=== PATIENT | female | born 1960 | race Caucasian/White ===

== ENCOUNTER → 2016-04-30 | Outpatient (CLI) | payer BC ==
--- NOTE | 2016-05-06 07:57 | REPMRS ---
Patient History The patient states she had a clinical breast exam in 05/07 Family history of breast cancer in maternal aunt at age 54. Digital Woman Screen Mammo: April 30, 2016 - Exam #: [id number] Bilateral CC and MLO view(s) were taken. Technologist: Rocio Erickson, Technologist Prior study comparison: February 04, 2014, digital bilateral screening mammo, performed at [facility]. November 05, 2012, digital bilateral screening mammo, performed at [facility]. FINDINGS: There are scattered fibroglandular densities. There is a moderate amount of residual fibroglandular tissue which is fairly symmetric. There is no interval development of dominant mass, architectural distortion, or clustered microcalcification typical of malignancy. There has been no change in the appearance of the mammogram from the prior studies. ASSESSMENT: BI-RADS/ACR category 1 mammogram. Negative. Recommendation Routine screening mammogram of both breasts in 1 year (for women over age 40). This mammogram was interpreted with the aid of an FDA-approved computer-aided dectection system. Electronically Signed By: Gerry Arias MD 05/06/16 [id number]
== END ==
LOC: M WHC 10:15
PROVIDERS: ATTEND Nurse Practitioner Family
DX: Z12.31 Encounter for screening mammogram for malignant neoplasm of breast (principal)

== ENCOUNTER → 2016-04-30 | Outpatient (REF) | payer BC | LOC: M SFHCWAGY 11:03 | PROVIDERS: ATTEND Nurse Practitioner Family | DX: Z12.4 Encounter for screening for malignant neoplasm of cervix (principal) ==

== ENCOUNTER → 2017-11-27 | Outpatient (CLI) | payer BC | LOC: M WHC 11:12 | DX: Z12.31 Encounter for screening mammogram for malignant neoplasm of breast (principal) | CPT/HCPCS: 77067 ==

== ENCOUNTER → 2019-05-05 | Outpatient (REF) | payer BC | LOC: M SFHCWAGY 13:31 | PROVIDERS: ATTEND Nurse Practitioner Family | DX: Z12.4 Encounter for screening for malignant neoplasm of cervix (principal); N76.89 Other specified inflammation of vagina and vulva | CPT/HCPCS: 87624; G0123 ==

== ENCOUNTER → 2019-05-05 | Outpatient (CLI) | payer BC ==
--- NOTE | 2019-05-05 11:40 | REPMRS ---
Patient History The patient states she had a clinical breast exam in April 2019.Family history of breast cancer at age 54 in maternal aunt. No Hormone Replacement Therapy Digital Woman Screen Mammo: May 05, 2019 - Exam #: [id number] Bilateral CC and MLO view(s) were taken. Technologist: Mayi Garcia, Technologist Prior study comparison: November 27, 2017, bilateral digital woman screen mammo performed at [facility]. April 30, 2016, digital woman screen mammo performed at [facility]. February 04, 2014, digital bilateral screening mammo, performed at [facility]. FINDINGS: The breast tissue is heterogeneously dense. This may lower the sensitivity of mammography. There is a moderate amount of heterogeneously dense fibroglandular tissue which is fairly symmetric. There is no interval development of dominant mass, architectural distortion, or grouped microcalcification typical of malignancy. There has been no change in the appearance of the mammogram from the prior studies. 3-D tomosynthesis shows no additional findings. Assessment: BI-RADS/ACR category 1 mammogram. Negative Mammogram. Recommendation Routine screening mammogram of both breasts in 1 year (for women over age 40). This patient's Lifetime Breast Cancer RIsk is estimated at 11.4 %. This mammogram was interpreted with the aid of an FDA-approved computer-aided dectection system. Electronically Signed By: Gerry Arias MD 05/05/19 [id number]
== END ==
LOC: M WHC 09:08
PROVIDERS: ATTEND Nurse Practitioner Family
DX: Z12.31 Encounter for screening mammogram for malignant neoplasm of breast (principal)

== ENCOUNTER → 2021-01-10 | Outpatient (CLI) | payer BC ==
--- NOTE | 2021-01-10 13:12 | REPMRS ---
Patient History The patient states she had a clinical breast exam in December 2020. Patient is postmenopausal. Family history of breast cancer at age 54 in maternal aunt. No Hormone Replacement Therapy Patient states no breast complaints today. Patient has signed MRS History Sheet. Digital Woman Screen Mammo: January 10, 2021 - Exam #: [id number] Bilateral CC and MLO view(s) were taken. Technologist: Brigitte Kaur Technologist Prior study comparison: May 05, 2019, bilateral digital woman screen mammo performed at [facility]. November 27, 2017, bilateral digital woman screen mammo performed at [facility]. FINDINGS: There are scattered fibroglandular densities. Screening. Digital screening (2D) mammography was performed bilaterally in the CC and MLO projections. Additionally, breast tomosynthesis (3D mammography) was performed bilaterally in the CC and MLO projections. Todays exam was compared to the prior exam/exams. By history, the patient has no complaints of a palpable breast abnormality or other significant breast complaints. The breasts are unchanged in size and shape. There are no aimee-soft tissue densities or spiculated masses. There is no internal architectural distortion. There are no suspicious aimee-calcific clusters. Skin thickening or nipple retraction is not present. The Volpara volumetric breast density category is B, there are scattered areas of fibroglandular densities. IMPRESSION: BI-RADS Category 2- Benign Findings. There is no evidence of malignant alteration of the breasts. Followup examination recommended in one year. This mammogram was read with the assistance of [facility],an FDA approved computer aided detection system for mammography. The lifetime Tyrer-Cuzick score is 12.6% Negative x-ray reports should not delay surgical consultation if a dominant or clinically suspicious mass is present. Not all breast cancers can be identified by mammography. Therefore, we recommend that you continue to perform regular breast self-examination and physical examination and then promptly contact your physician of any concerns or changes. Adenosis and dense breasts may obscure an underlying neoplasm. No significant changes when compared with prior studies. Assessment: BI-RADS/ACR category 2 mammogram. Benign Findings. Recommendation Routine screening mammogram of both breasts in 1 year. Electronically Signed By: Yogesh Wong MD 01/10/21 [id number]
== END ==
LOC: M WHC 10:52
PROVIDERS: ATTEND Nurse Practitioner Women's Health
DX: Z12.31 Encounter for screening mammogram for malignant neoplasm of breast (principal)

== ENCOUNTER 2022-06-21 08:32 | Day surgery (SDC) | payer BC ==
[~2022-06-21] VITALS: Ht 175.3 cm; Wt 83.9 kg
[~2022-06-21 08:32] MED LIST: CLAR10CA3 PO; KETOROLAC 60MG 2ML VIAL As Ordered ONE; LIDOCAINE 2% 100MG/5ML SDV (FOR ANES.) As Ordered ONE; MIDAZOLAM INJ 2MG/2ML VIAL As Ordered ONE; MONT10TA97 PO; OMEP-173 PO; ONDANSETRON 4MG 2ML VIAL As Ordered ONE; ROCURONIUM BROMIDE 50MG/5ML VIAL As Ordered ONE; SIMV10TA21 PO; SUGAMMADEX SODIUM 500 MG/5 ML VIAL (BRIDION) As Ordered ONE; fentaNYL 100 MCG/2 ML INJECTION As Ordered ONE; propofoL 200 MG/20 ML VIAL As Ordered ONE
[2022-06-21] MEDS ORDERED: LR 1,000 ML IV SCH ×2 (08:50→10:45)
[2022-06-21 08:59] LABS: HEMATOCRIT 43.8 % (36.0-47.0); HEMOGLOBIN 14.4 g/dl (12.0-15.5); MEAN CORPUSCULAR HEMOGLOBIN 30.9 pg (27.0-33.0); MEAN CORPUSCULAR HGB CONC 32.9 g/dl (32.0-36.5); PLATELET COUNT, AUTOMATED 231 10^3/uL (150-450); RED BLOOD COUNT 4.66 10^6/uL (4.00-5.40); WHITE BLOOD COUNT 7.6 10^3/uL (4.0-10.0)
[2022-06-21] MEDS ORDERED: ACETAMINOPHEN 1000MG 100ML IV BAG As Ordered ONE (09:51)
[2022-06-21] MEDS ORDERED: BUPIVACAINE HCL 0.25% 30ML VIAL As Ordered ONE (10:35)
[2022-06-21] MEDS ORDERED: ONDANSETRON 4MG 2ML VIAL IV PRN (10:45)
[2022-06-21] MEDS ORDERED: fentaNYL 100 MCG/2 ML INJECTION IV PRN (10:45)
[2022-06-21] MEDS: oxyCODONE 5MG TAB PO PRN ×2 (11:03→11:44)
[2022-06-21] MEDS: HYDROMORPHONE HCL 0.5 MG/ 0.5 ML SYRINGE IV PRN ×4 (11:04→11:20)
[2022-06-21] MEDS ORDERED: IBUP-1022 PO (11:20)
[2022-06-21] MEDS ORDERED: OXYC1TAB23 PO (11:21)
[2022-06-21 12:41] VITALS: BP 107/59
== END 2022-06-21 13:16 | disposition home or self-care (01) ==
LOC: M SDC 08:32
PROVIDERS: ATTEND Specialist
DX: D27.0 Benign neoplasm of right ovary (principal); E78.5 Hyperlipidemia, unspecified; Z86.16 Personal history of COVID-19; Z79.899 Other long term (current) drug therapy
CPT/HCPCS: 36415; 58661; 85027; 88305; 93005; J0131; J1100; J1170; J1885; J2250; J2405; J3010; S0020

== ENCOUNTER → 2022-08-06 | Outpatient (REF) | payer BC ==
[~2022-08-06] MED LIST changes: +IBUP-1022 PO; -KETOROLAC 60MG 2ML VIAL As Ordered ONE; -LIDOCAINE 2% 100MG/5ML SDV (FOR ANES.) As Ordered ONE; -MIDAZOLAM INJ 2MG/2ML VIAL As Ordered ONE; -ONDANSETRON 4MG 2ML VIAL As Ordered ONE; +OXYC1TAB23 PO; -ROCURONIUM BROMIDE 50MG/5ML VIAL As Ordered ONE; -SUGAMMADEX SODIUM 500 MG/5 ML VIAL (BRIDION) As Ordered ONE; -fentaNYL 100 MCG/2 ML INJECTION As Ordered ONE; -propofoL 200 MG/20 ML VIAL As Ordered ONE
== END ==
LOC: M SFHCWAGY 17:32
PROVIDERS: ATTEND Specialist
DX: Z12.4 Encounter for screening for malignant neoplasm of cervix (principal)
CPT/HCPCS: 87624; G0123

== ENCOUNTER → 2022-08-06 | Outpatient (CLI) | payer BC | LOC: M WHC 11:09 | PROVIDERS: ATTEND Specialist | DX: Z12.31 Encounter for screening mammogram for malignant neoplasm of breast (principal) ==

== ENCOUNTER → 2022-12-10 | Outpatient (CLI) | payer BC | LOC: M SOG 11:08 | PROVIDERS: ATTEND Orthopaedic Surgery Hand Surgery | DX: M79.644 Pain in right finger(s) (principal) ==

== ENCOUNTER → 2023-11-21 | Outpatient (REF) | payer BC ==
[2023-11-25 13:17] LABS: HPV APTIMA Not Detected (Not Detected)
== END ==
LOC: M SFHCWAGY 15:05
PROVIDERS: ATTEND Specialist
DX: Z01.419 Encounter for gynecological examination (general) (routine) without abnormal findings (principal); Z77.9 Other contact with and (suspected) exposures hazardous to health; Z12.4 Encounter for screening for malignant neoplasm of cervix

== ENCOUNTER → 2023-11-21 | Outpatient (CLI) | payer BC, SELFPAY | LOC: M WHC 15:14 | PROVIDERS: ATTEND Specialist | DX: Z12.31 Encounter for screening mammogram for malignant neoplasm of breast (principal) ==

== ENCOUNTER → 2025-04-01 | Outpatient (CLI) | payer OTHER ==
[~2025-04-01] MED LIST changes: -IBUP-1022 PO; +IBUP600T42 PO
== END ==
LOC: M WHC 09:06
PROVIDERS: ATTEND Specialist
DX: Z12.31 Encounter for screening mammogram for malignant neoplasm of breast (principal)

== ENCOUNTER → 2025-04-01 | Outpatient (REF) | payer BC, OTHER ==
[2025-04-05 13:01] LABS: HPV APTIMA Not Detected (Not Detected)
== END ==
LOC: M SFHCWAGY 13:21
PROVIDERS: ATTEND Specialist
DX: Z01.419 Encounter for gynecological examination (general) (routine) without abnormal findings (principal); Z77.9 Other contact with and (suspected) exposures hazardous to health
CPT/HCPCS: 87624; G0123